=== PATIENT | female | born 1950 | race Caucasian/White ===

== ENCOUNTER → 2016-12-03 | Outpatient (CLI) | payer OTHER | LOC: BMCIMAGING 14:40 | DX: Z12.31 Encounter for screening mammogram for malignant neoplasm of breast (principal) | CPT/HCPCS: G0202 ==

== ENCOUNTER → 2018-01-22 | Outpatient (CLI) | payer OTHER | LOC: BHFA 10:30 | PROVIDERS: ATTEND Internal Medicine Cardiovascular Disease | DX: R07.9 Chest pain, unspecified (principal); I25.10 Atherosclerotic heart disease of native coronary artery without angina pectoris ==

== ENCOUNTER → 2018-02-09 | Outpatient (CLI) | payer OTHER | LOC: BMCIMAGING 08:15 | PROVIDERS: ATTEND Internal Medicine | DX: Z12.31 Encounter for screening mammogram for malignant neoplasm of breast (principal) ==

== ENCOUNTER → 2018-03-03 | Outpatient (CLI) | payer OTHER | LOC: BHFA 14:00 | PROVIDERS: ATTEND Internal Medicine Cardiovascular Disease | DX: R07.9 Chest pain, unspecified (principal) ==

== ENCOUNTER → 2018-05-06 | Outpatient (CLI) | payer OTHER | LOC: BHFA 09:30 | PROVIDERS: ATTEND Internal Medicine Cardiovascular Disease | DX: R07.9 Chest pain, unspecified (principal); I25.10 Atherosclerotic heart disease of native coronary artery without angina pectoris; R94.39 Abnormal result of other cardiovascular function study | CPT/HCPCS: 78452; 93017; A9500 ==

== ENCOUNTER → 2018-08-21 | Outpatient (CLI) | payer OTHER | LOC: BMCIMAGING 14:33 | PROVIDERS: ATTEND Family Medicine | DX: S52.531A Colles' fracture of right radius, initial encounter for closed fracture (principal) ==

== ENCOUNTER → 2018-09-04 | Outpatient (CLI) | payer OTHER | END | disposition home or self-care (01) | LOC: BMCIMAGING 08:18 | PROVIDERS: ATTEND Physician Assistant | DX: S52.531D Colles' fracture of right radius, subsequent encounter for closed fracture with routine healing (principal) ==

== ENCOUNTER → 2018-09-14 | Outpatient (CLI) | payer OTHER | LOC: BMCIMAGING 09:21 | PROVIDERS: ATTEND Physician Assistant | DX: S52.531D Colles' fracture of right radius, subsequent encounter for closed fracture with routine healing (principal) ==